=== PATIENT | male | born 1950 | race Two or more races ===

== ENCOUNTER 2019-09-12 16:22 | Emergency (ER) | payer OTHER ==
[~2019-09-12] VITALS: Ht 175.3 cm; Wt 79.4 kg
[~2019-09-12 16:22] MED LIST: Amoxicillin500 MG PO; MELO7.5 PO
[2019-09-12] MEDS ORDERED: HYDR1TAB94 PO (17:38)
[2019-09-12] MEDS ORDERED: CRUTCH2 XX (17:40)
== END 2019-09-12 17:45 | disposition home or self-care (01) ==
LOC: ER 16:22
DX: S82.64XA Nondisplaced fracture of lateral malleolus of right fibula, initial encounter for closed fracture (principal); F17.200 Nicotine dependence, unspecified, uncomplicated; X58.XXXA Exposure to other specified factors, initial encounter
CPT/HCPCS: 29515; 73610; 99283-25